=== PATIENT | female | born 1940 | race Caucasian/White ===

== ENCOUNTER 2018-03-11 10:57 | Inpatient (IN) ==
[2018-03-11] MEDS ORDERED: Naloxone 0.4 MG/ML INJ IVP PRN (15:00)
--- NOTE | 2018-03-11 15:26 | Internal Med History&Physical ---
Date of Encounter: 03/11/18 Time of Encounter: 15:18 Internal Medicine - H&P: HPI Chief complaint: abdominal pain Admitted From: Hospital to Hospital Transfer Plans for Post Hospital Care: Home History of present illness: Ms. Perez is a 77 year old female with history of breast cancer status post lumpectomy and radiation, hypertension and hypothyroidism who presented to the [facility] emergency department on 03/09 with complaint of vomiting and diarrhea. As per chart review and [facility] documentation " She reports 2-3 episodes of vomiting and diarrhea without visible blood in either. There was no significant abdominal pain. She was brought to emergency room and evaluated and found to have slightly elevated LFTs. Abdominal/pelvic CT showed Cholelithiasis without evidence of cholecystitis was seen. She was admitted to [facility] for ongoing care needs." His UA was found to be positive at that time and she was given ceftriaxone. On 03/11 she complained of right upper quadrant abdominal pain with T's were repeated and it showed an increased level of alkaline phosphatase in addition to transaminitis so she was transferred to [facility] for further care. Currently she denies abdominal pain but does report a "funny feeling" in the RUQ. she Reports that her nausea and vomiting have resolved as of this morning. Denies diarrhea. denies hematemesis, hematochezia, melena. does report RUQ pain previously after eating fatty foods. her symtoms began on 03/08 after she was visiting her friend and they " pigged out" on "junk food". denies sick contacts, her family members and other friends are not experiencing similar symptoms. Past Med Surg Social Fam HX - Past Medical History Medical history: cancer, hypertension, kidney stones, thyroid disease Additional medical history: breast cancer-lumpectomy (20 radiation treatments) Psychiatric history: no psych history - Past Surgical History Surgical History: breast surgery Additional surgical history: BREAST CANCER - Social History Smoking Status: Never smoker Smokeless Tobacco Status: No Alcohol use: none Drug use: none - Family History Mother Living Status: Hx Family Endocrine Disorder: Yes (diabetes) Father Living Status: Hx Family Cancer: Yes (lung cancer) Internal Medicine - H&P: Meds Calcium Carbonate/Vitamin D3 [Calcium 250+D Tablet] 1 each PO BID 03/19/15 [ History] Levothyroxine [Synthroid] 50 mcg PO DAILY 03/19/15 [History] Lisinopril [Zestril] 40 mg PO DAILY 03/19/15 [History] Flaxseed Oil 1 cap PO BID #60 capsule 01/29/16 [Rx] Anastrozole [Arimidex] 1 mg PO DAILY #90 tablet 01/21/17 [Rx] Cyanocobalamin (Vitamin B-12) [Vitamin B12] 1 tab PO DAILY #30 tablet 01/06/18 [ Rx] 3 Allergy/AdvReac Type Severity Reaction Status Date / Time allopurinol Allergy Rash Verified 03/09/18 13:07 clindamycin Allergy Rash Verified 03/09/18 13:07 All Systems PM: review of systems was performed and is negative for pertinent findings except as documented above in the HPI. - Constitutional Vitals: Temp Pulse Resp BP Pulse Ox 98.2 F 57 16 183/85 95 03/11/18 13:33 03/11/18 13:33 03/11/18 13:33 03/11/18 13:33 03/11/18 13:33 Exam: General: Patient is alert, oriented, no acute distress, morbidly obese Head: atraumatic, normocephalic, Eye: normal appearance, PERRL, no scleral icterus, no conjunctival injection ENT: mucous membranes moist, normal external ear exam Neck: normal inspection, trachea midline, full ROM, no carotid bruits Chest: normal inspection, symmetric chest rise Respiratory: Good respiratory effort. Bilateral breath sounds are clear without wheezing, crackles, or rhonchi. Cardiovascular: Regular rate and rhythm. s1 and s2 No clicks, rubs, gallops, or murmors. Abdomen: Bowel sounds present normoactive x-4 quadrants. Abdomen is soft, nondistended. no Epigastric tenderness. No guarding or rebound. No organomegaly noted, obese, murphysign negative musculoskeletal: Spontaneously moving all extremities. no edema, no calf tenderness Skin: warm, dry, intact. Neuro: Alert and oriented x4. Sensation light touch intact. Cranial nerves 2- 12 is intact. Not aphasic, rapid hand movements intact, [id number] intact, Psych: Patient's affect is normal - Assessment and plan (1) RUQ abdominal pain Current Visit: Yes Status: Acute Assessment and plan: patient with cholelithiasis and now new onset of RUQ abdominal pain ALP adn bilirubin have trended up GI consulted for possible ERCP surgery was consulted for cholecystectomy she has prior episodes of bilary colic on zosyn NPO continue IVF zofran PRN for nausea (2) Cholelithiasis Current Visit: No Status: Acute Assessment and plan: CT scan performed on 03/09 at [facility] shows cholelithiasis without evidence of obstruction Does report history of biliary colic Breast the management as per above. Qualifiers: Cholelithiasis location: gallbladder Cholecystitis acuity: acute and chronic Qualified Code(s): K80.12 - Calculus of gallbladder with acute and chronic cholecystitis without obstruction (3) UTI (urinary tract infection) Current Visit: Yes Status: Acute Assessment and plan: urine cultures growing gram negative rods on Zosyn will follow cx and descalate CT A/P performed on 03/09- There is no evidence for urinary tract stone or urinary tract obstruction to either kidney. Redemonstration of low-attenuation foci to both kidneys felt to reflect benign renal cysts and without necessity for continued follow-up. Qualifiers: Urinary tract infection type: acute cystitis Hematuria presence: without hematuria Qualified Code(s): N30.00 - Acute cystitis without hematuria (4) CKD (chronic kidney disease) stage 3, GFR 30-59 ml/min Current Visit: No Status: Acute Assessment and plan: creatinine at baseline will continue to monitor renal functions (5) Hyperlipidemia Current Visit: No Status: Acute Assessment and plan: Will hold off statins as patient has transaminitis Was counseled on nutrition Qualifiers: Hyperlipidemia type: mixed hyperlipidemia Qualified Code(s): E78.2 - Mixed hyperlipidemia (6) Anemia Current Visit: No Status: Chronic Assessment and plan: Has history of chronic anemia baseline hemoglobin around 10 We will continue to monitor H&H Transfuse below 7 Qualifiers: Anemia type: unspecified type Qualified Code(s): D64.9 - Anemia, unspecified (7) Hypertension Current Visit: No Status: Chronic Assessment and plan: Continue lisinopril Qualifiers: Hypertension type: essential hypertension Qualified Code(s): I10 - Essential (primary) hypertension (8) Hypothyroidism Current Visit: No Status: Chronic Assessment and plan: Continue Synthroid Qualifiers: Hypothyroidism type: unspecified Qualified Code(s): E03.9 - Hypothyroidism , unspecified (9) Invasive ductal carcinoma of right breast Current Visit: No Status: Resolved Assessment and plan: Status post lumpectomy as follows with Dr. Corea at [facility] Continue anastrozole (10) DVT prophylaxis Current Visit: Yes Status: Acute Assessment and plan: heparin SC (11) Morbidly obese Current Visit: Yes Status: Acute Assessment and plan: was counseled on nutrition - Time Spent With Patient Total time spent is greater than 50% in coordination of care (as documented) at patient's floor/unit and/or counseling patient:
--- NOTE | 2018-03-11 15:51 | General Surgery Consult Note ---
<Sarah Villela - Last Filed: 03/11/18 16:06> Date of Encounter: 03/11/18 Time of Encounter: 15:45 Assessment and Plan (1) Transaminitis Current Visit: Yes Status: Acute see above (2) Cholelithiasis without cholecystitis Current Visit: Yes Status: Acute Noted G.I. consult. Recommend likely ERCP prior to surgical intervention for cholecystectomy. WBC is normal. No evidence of acute cholecystitis. Npo IVF IV ATBX Serial abd exams repeat am labs will continue to follow History of Present Illness Consult date: 03/11/18 (Dr. Loc Hernandez) Reason for consult: gallstones Requesting physician: Kendell Ramirez History of present illness: Ms. Perez is a 77-year-old female with a significant past medical history of breast cancer. Additional past medical, social, and surgical history to reviewed per the electronic medical record. She was transferred from [facility] on 03/11/2018 for choledocholithiasis. Patient reports approximately a 1 year history of colicky nausea, vomiting, and diarrhea which would be exacerbated by food. She is unable to state what food particularly caused the discomfort but states that always occurred after she ate. Approximately one to 3 days ago she began having some right upper quadrant pain, nausea, uncontrollable vomiting, and some diarrhea. She went to the emergency department as such (she was also seen on March 09, 2018 for the same complaints at which time she had a CT scan which noted cholelithiasis without obstruction). She reports having dark-colored urine. She denies fever, chills, chest pain, generalized weakness, black, bloody, or tarry stool. She reports feeling occasional shortness of breath which is not outside her norm. Her clinical course thus far has included laboratory studies which noted elevated direct and total bilirubin, elevated LFTs, and a CT of the abdomen and pelvis without contrast which notes cholelithiasis. G.I. has been consult it for recommendations regarding a possible ERCP. Surgery has been consult did for recommendations regarding cholecystectomy. Past Med Surg Social Fam HX - Past Medical History Source: patient, old records reviewed Medical history: cancer, hypertension, kidney stones, thyroid disease Additional medical history: breast cancer-lumpectomy (20 radiation treatments) Psychiatric history: no psych history - Past Surgical History Surgical History: breast surgery Additional surgical history: BREAST CANCER - Social History Smoking Status: Never smoker Smokeless Tobacco Status: No Alcohol use: none Drug use: none - Family History Mother Living Status: Hx Family Endocrine Disorder: Yes (diabetes) Father Living Status: Hx Family Cancer: Yes (lung cancer) Medications and Allergies Calcium Carbonate/Vitamin D3 [Calcium 250+D Tablet] 1 each PO BID 03/19/15 [ History] Levothyroxine [Synthroid] 50 mcg PO DAILY 03/19/15 [History] Anastrozole [Arimidex] 1 mg PO DAILY #90 tablet 01/21/17 [Rx] Cyanocobalamin (Vitamin B-12) [Vitamin B12] 1 tab PO DAILY #30 tablet 01/06/18 [ Rx] Flaxseed Oil [[place]-3 Flaxseed Oil] 1,000 mg PO DAILY 03/11/18 [History] Lisinopril [Zestril] 40 mg PO DAILY 03/11/18 [History] 3 Allergy/AdvReac Type Severity Reaction Status Date / Time allopurinol Allergy Rash Verified 03/09/18 13:07 clindamycin Allergy Rash Verified 03/09/18 13:07 Review of Systems All systems PM: reviewed and no additional remarkable complaints except as stated All systems PM: The remainder of the systems were reviewed and are negative General Surgery Exam Initial Vital Signs Temp Pulse Resp BP Pulse Ox 98.2 F 57 16 183/85 95 03/11/18 13:33 03/11/18 13:33 03/11/18 13:33 03/11/18 13:33 03/11/18 13:33 VITAL SIGNS: Reviewed. See [facility] GENERAL: In no apparent distress. HEENT: Normocephalic, atraumatic, pupils are equal and reactive, extraocular motions intact, scleral icteric; oropharynx is pink and moist, there is no neck adenopathy or JVD noted. CHEST/RESPIRATORY: The thorax is free from signs of trauma. Lung sounds: clear to auscultation, normal respiratory effort CARDIAC: Regular rate and rhythm. Normal S1 and S2, without murmurs, gallops, or rubs. VASCULAR: No Edema. 2+ peripheral pulses. ABDOMEN: soft, hypoactive bowel sounds, positive Cabrera sign MUSCULOSKELETAL: Good range of motion of all major joints. Extremities without clubbing, cyanosis or edema. NEUROLOGIC EXAM: Alert and oriented x 3. Speech normal. Follows commands. PSYCHIATRIC: Mood normal. SKIN: No rash or lesions. Jaundice noted Exam Initial Vital Signs Temp Pulse Resp BP Pulse Ox 98.2 F 57 16 183/85 95 03/11/18 13:33 03/11/18 13:33 03/11/18 13:33 03/11/18 13:33 03/11/18 13:33 Results - Labs All other labs normal. - Imaging CT scan - abdomen: report reviewed, image reviewed CT scan - pelvis: report reviewed, image reviewed Consult Discharge Plan - Plan Instructions: Gallstones (DC), Low Fat Diet (DC) Referrals: Loc Hernandez MD [Partnered Physician] - 03/17/18 8:15 am Aguila Rocha MD [Primary Care Provider] - 03/17/18 11:30 am <Loc Hernandez - Last Filed: 03/12/18 14:58> Date of Encounter: 03/11/18 Assessment and Plan (1) Transaminitis Current Visit: Yes Status: Acute (2) Cholelithiasis without cholecystitis Current Visit: Yes Status: Acute Review of Systems All systems PM: The remainder of the systems were reviewed and are negative General Surgery Exam Initial Vital Signs Temp Pulse Resp BP Pulse Ox 98.2 F 57 16 183/85 95 03/11/18 13:33 03/11/18 13:33 03/11/18 13:33 03/11/18 13:33 03/11/18 13:33 Exam Initial Vital Signs Temp Pulse Resp BP Pulse Ox 98.2 F 57 16 183/85 95 03/11/18 13:33 03/11/18 13:33 03/11/18 13:33 03/11/18 13:33 03/11/18 13:33 Results - Labs 03/12/18 05:31 03/12/18 05:31 Abnormal lab results RBC 3.38 M/mcL (3.82-4.97) L 03/12/18 05:31 Hgb 10.4 g/dL (11.5-15.4) L 03/12/18 05:31 Hct 32.2 % (35.3-44.9) L 03/12/18 05:31 Creatinine 1.44 mg/dL (0.60-1.20) H 03/12/18 05:31 Est GFR ( Amer) 43 (> 60) L 03/12/18 05:31 Est GFR (Non-Af Amer) 35 (> 60) L 03/12/18 05:31 Glucose 126 mg/dL (70-105) H 03/12/18 05:31 POC Glucose 123 mg/dL (70-99) H 03/12/18 05:49 Total Bilirubin 1.4 mg/dL (0.3-1.0) H 03/12/18 05:31 Direct Bilirubin 0.8 mg/dL (0.0-0.2) H 03/12/18 05:31 AST 123 Units/L (13-39) H 03/12/18 05:31 ALT 314 Units/L (7-52) H 03/12/18 05:31 Alkaline Phosphatase 173 Units/L (34-104) H 03/12/18 05:31 Diabetes panel 03/12/18 Range/Units 05:31 Sodium 140 (136-145) mEq/L Potassium 3.5 (3.5-5.1) mEq/L Chloride 105 (98-107) mEq/L Carbon Dioxide 26 (23-29) mEq/L BUN 16 (8-23) mg/dL Creatinine 1.44 H (0.60-1.20) mg/dL Glucose 126 H (70-105) mg/dL Calcium 9.5 (8.6-10.3) mg/dL AST 123 H (13-39) Units/L ALT 314 H (7-52) Units/L Alkaline Phosphatase 173 H (34-104) Units/L Albumin 3.6 (3.5-5.7) g/dL Calcium panel 03/12/18 Range/Units 05:31 Calcium 9.5 (8.6-10.3) mg/dL Phosphorus 3.5 (2.7-4.5) mg/dL Albumin 3.6 (3.5-5.7) g/dL Pituitary panel 03/12/18 Range/Units 05:31 Sodium 140 (136-145) mEq/L Potassium 3.5 (3.5-5.1) mEq/L Chloride 105 (98-107) mEq/L Carbon Dioxide 26 (23-29) mEq/L BUN 16 (8-23) mg/dL Creatinine 1.44 H (0.60-1.20) mg/dL Glucose 126 H (70-105) mg/dL Calcium 9.5 (8.6-10.3) mg/dL Adrenal panel 03/12/18 Range/Units 05:31 Sodium 140 (136-145) mEq/L Potassium 3.5 (3.5-5.1) mEq/L Chloride 105 (98-107) mEq/L Carbon Dioxide 26 (23-29) mEq/L BUN 16 (8-23) mg/dL Creatinine 1.44 H (0.60-1.20) mg/dL Glucose 126 H (70-105) mg/dL Calcium 9.5 (8.6-10.3) mg/dL Total Bilirubin 1.4 H (0.3-1.0) mg/dL AST 123 H (13-39) Units/L ALT 314 H (7-52) Units/L Alkaline Phosphatase 173 H (34-104) Units/L Albumin 3.6 (3.5-5.7) g/dL All other labs normal. - Attending Attestation I have personally performed a face to face evaluation on this patient. I have reviewed and agree with the care plan. History and Exam by me shows: Review the assessment and evaluation agree with the plan. Patient has a history of colicky abdominal pain. Noted nausea. No change in color or urine or stool. Laboratory studies show elevated bilirubin. She has some tenderness to palpation but her symptoms have improved. She is currently being evaluated by gastroenterology who will consider performing an ERCP. Once performed and she starts to improve then we will follow-up as an outpatient and consider a laparoscopic cholecystectomy as outpatient. Discussed with the patient and she agrees with the above plan.
[2018-03-11] MEDS: amLODIPine 5 MG TABLET PO SCH (15:55)
[2018-03-11] MEDS: 0.9 % Sodium Chloride 1,000 ML IVC SCH (15:56)
[2018-03-11] MEDS: Piperacillin/Tazobactam 3.375 GM in 0.9 % Sodium Chloride Mini Bag 100 ML IVPB SCH (16:03)
[2018-03-11] MEDS ORDERED: Furosemide 20 MG/2 ML VIAL IVP ONE (17:32)
[2018-03-11] MEDS: FLAXSEED OIL PO SCH (21:46)
[2018-03-11] MEDS: CALCIUM PO SCH (21:46)
[2018-03-11] MEDS: [UNRECOGNIZED DRUG - OTHER] PO SCH (21:46)
[2018-03-11] MEDS: *HR* Heparin 5,000 UNIT/ML VIAL SQ SCH (21:57)
[2018-03-12] MEDS: Piperacillin/Tazobactam 3.375 GM in 0.9 % Sodium Chloride Mini Bag 100 ML IVPB SCH ×4 (01:17→23:19)
[2018-03-12] MEDS: *HR* Heparin 5,000 UNIT/ML VIAL SQ SCH ×3 (05:39→21:54)
[2018-03-12 06:00] LABS: Prothrombin Time 11.7 Seconds (9.4-12.1)
[2018-03-12 06:01] LABS: Basophils % 0.8 %; Eosinophils # 0.2 K/mcL (0.0-0.6); Eosinophils % 4.3 %; Hematocrit 32.2 % (35.3-44.9); Hemoglobin 10.4 g/dL (11.5-15.4); Immature Granulocytes % 0.4 % (0-4); Lymphocytes # 1.1 K/mcL (0.6-4.6); Lymphocytes % 23.1 %; Mean Corpuscular HGB Conc 32.3 g/dL (31.6-35.5); Mean Corpuscular Hemoglobin 30.8 pg (28.0-33.3); Mean Corpuscular Volume 95.3 fL (83.0-100.0); Mean Platelet Volume 9.9 fL (9.4-12.4); Monocytes # 0.4 K/mcL (0.0-1.3); Monocytes % 8.5 %; Neutrophils # 3.1 K/mcL (1.6-8.9); Platelet Count 180 K/mcL (140-400); Red Blood Count 3.38 M/mcL (3.82-4.97); Segmented Neutrophils % 62.9 %
[2018-03-12 06:03] LABS: Activated Partial Thrombo Time 33.2 Seconds (26.0-36.0)
[2018-03-12 06:06] LABS: Albumin 3.6 g/dL (3.5-5.7); Albumin/Globulin Ratio 1.2 (1.1-2.2); Bilirubin,Total 1.4 mg/dL (0.3-1.0); Calcium 9.5 mg/dL (8.6-10.3); Magnesium 1.6 mg/dL (1.6-2.6); Phosphorous 3.5 mg/dL (2.7-4.5); Potassium 3.5 mEq/L (3.5-5.1); Total Protein 6.6 g/dL (6.4-8.9)
[2018-03-12] MEDS: Lisinopril 20 MG TABLET PO SCH (09:17)
[2018-03-12] MEDS: Anastrozole 1 MG TABLET PO SCH (09:17)
[2018-03-12] MEDS: amLODIPine 5 MG TABLET PO SCH (09:17)
[2018-03-12] MEDS: Cyanocobalamin (B-12) 1,000 MCG TABLET PO SCH (09:17)
[2018-03-12] MEDS: CALCIUM PO SCH ×2 (09:36→21:50)
[2018-03-12] MEDS: [UNRECOGNIZED DRUG - OTHER] PO SCH ×2 (09:36→21:50)
[2018-03-12] MEDS: FLAXSEED OIL PO SCH ×2 (09:37→21:50)
--- NOTE | 2018-03-12 10:02 | Gastroenterology Consult Note ---
Date of Encounter: 03/12/18 Time of Encounter: 08:45 - Assessment and plan (1) Transaminitis Current Visit: Yes Status: Acute Assessment and plan: MRCP did not show choledocholithiasis or biliary dilation, lFTs are trending down, discussed with Dr Bean he recommends cholecystectomy with intraoperative cholangiogram if abnormal will schedule for ERCP. Continue IV hydration, monitor LFTs. (2) Cholelithiasis without cholecystitis Current Visit: Yes Status: Acute Assessment and plan: Pt followed by surgery, discussed with Sarah Villela CNP this morning - Time Spent With Patient Total time spent is greater than 50% in coordination of care (as documented) at patient's floor/unit and/or counseling patient: GI History of Present Illness - Data of Consult Patient: new to practice Consult date: 03/12/18 Requesting Physician: Kendell Ramirez MD - Consult Narrative Reason for consult: transaminitis History of present illness: Ms. Perez is a 77 year old female with history of breast cancer status post lumpectomy and radiation, hypertension and hypothyroidism. She presented to the [facility] emergency department on 03/09 with complaint of vomiting and diarrhea. She reported 2-3 episodes of vomiting and diarrhea without visible blood in either after eating "junk food". There was no significant abdominal pain. She was brought to emergency room and evaluated and found to have slightly elevated LFTs. Abdominal/pelvic CT showed Cholelithiasis without evidence of cholecystitis was seen. She was admitted to [facility] floor for ongoing care needs. Her UA was found to be positive and she was started on ceftriaxone. On 03/11 she complained of right upper quadrant abdominal pain, LFTs were repeated and it showed an increased level of alkaline phosphatase in addition to transaminitis so she was transferred to [facility] for further care. GI was consulted for possible ERCP. MRCP showed Cholelithiasis. No evidence of choledocholithiasis. No biliary ductal dilation. Bilirubin was elevated at 3.1 yesterday has decreased to 1.4 today. AST and ALT are also trending down. Colon: 2010 per pt was normal EGD denies NSAIDS: denies anticoagulants: heparin on hold Past Med Surg Social Fam HX - Past Medical History Medical history: cancer, hypertension, kidney stones, thyroid disease Additional medical history: breast cancer-lumpectomy (20 radiation treatments) Psychiatric history: no psych history - Past Surgical History Surgical History: breast surgery Additional surgical history: BREAST CANCER - Social History Smoking Status: Never smoker Smokeless Tobacco Status: No Alcohol use: none Drug use: none - Family History Mother Living Status: Hx Family Endocrine Disorder: Yes (diabetes) Father Living Status: Hx Family Cancer: Yes (lung cancer) Review of Systems: GI: as per [facility] GENERAL: denies fever, or chills EYES: denies yellow discoloration ENT: denies pain with swallowing or difficulty swallowing CARDIO: denies chest pain, palpitations RESP: No Shortness of breath with exertion : denies change in color of urine NEURO: weakness HEME: Denies any bruising MS: denies joint pain, joint swelling or back pain. DERM: denies rash or itching PSYCH: Denies history of anxiety or depression - Constitutional Vitals: Temp Pulse Resp BP Pulse Ox 98.1 F 61 16 199/57 94 03/12/18 07:43 03/12/18 07:43 03/12/18 07:43 03/12/18 07:43 03/12/18 08:13 Exam: CONSTITUTIONAL:~alert, no acute distress.~HEAD:~normocephalic.~EYES:~no jaundice.~NECK:~no obvious swelling.~HEART:~regular rate and rhythm, no murmurs. ~LUNGS:~bilateral good air entry.~ABDOMEN:~non distended, soft, tender epigastric area, and under both breasts, no masses pulpable, no organomegaly, obese.~RECTAL EXAM:~Deferred.~EXTREMITIES:~no clubbing, cyanosis or edema.~SKIN: ~pallor noted, no stigmata of chronic liver disease.~NEUROLOGIC:~no obvious focal defect.~~~~ Results - Labs CBC & Chem 7: 03/12/18 05:31 03/12/18 05:31 Labs: Last Result Calcium 9.5 mg/dL (8.6-10.3) 03/12/18 05:31 Entire Visit Hgb 10.4 g/dL (11.5-15.4) L 03/12/18 05:31 Hct 32.2 % (35.3-44.9) L 03/12/18 05:31 PT 11.7 Seconds (9.4-12.1) 03/12/18 05:31 Total Bilirubin 1.4 mg/dL (0.3-1.0) H 03/12/18 05:31 AST 123 Units/L (13-39) H 03/12/18 05:31 ALT 314 Units/L (7-52) H 03/12/18 05:31 - ABG ABG results: PT/INR, D-dimer PT 11.7 Seconds (9.4-12.1) 03/12/18 05:31 - Impressions Impressions Abdomen MRI 03/11/18 21:52 IMPRESSION: 1. No evidence of choledocholithiasis. No biliary ductal dilation. 2. Cholelithiasis. D/ / Danish Faith MD / Danish Faith MD Interpreting Provider: Danish Faith MD Consult Discharge Plan - Plan Referrals: Aguila Rocha MD [Primary Care Provider] -
--- NOTE | 2018-03-12 10:13 | General Surgery Progress Note ---
<Sarah Villela - Last Filed: 03/12/18 13:20> Date of Encounter: 03/12/18 - Assessment and Plan (1) Cholelithiasis without cholecystitis Current Visit: Yes Status: Acute OK to d/c patient from a surgical perspective. Follow-up appointment made (see d /c plan). Low at diet at d/c. Return for worsening symptoms. (2) Transaminitis Current Visit: Yes Status: Acute resolving Objective Vital Signs - Last 8 Hours Temp Pulse Resp BP Pulse Ox 03/12/18 11:59 98.0 F 81 16 178/74 94 03/12/18 08:13 94 03/12/18 07:43 98.1 F 61 16 199/57 94 Intake and Output 03/11/18 03/12/18 03/12/18 23:59 07:59 15:59 Intake Total 100 / 100 0 / 0 Output Total 1300 / 1300 Balance -1200 / -1200 0 / 0 Intake: IV Fluids 100 / 100 0 / 0 Zosyn 3.375 GM In 0.9 % Sodium 100 / 100 0 / 0 Chloride (Mini-Bag +) 100 ML @ 25 mls/hr IVPB Q8HR [facility] Rx#: [id number] Output: Urine 1300 / 1300 Other: Meal NPO Weight 109.7 kg Blood Glucose* 115 123 124 Patient Weight 03/12/18 23:59 Weight 109.7 kg - Labs 03/12/18 05:31 03/12/18 05:31 Diabetes panel 03/12/18 Range/Units 05:31 Sodium 140 (136-145) mEq/L Potassium 3.5 (3.5-5.1) mEq/L Chloride 105 (98-107) mEq/L Carbon Dioxide 26 (23-29) mEq/L BUN 16 (8-23) mg/dL Creatinine 1.44 H (0.60-1.20) mg/dL Glucose 126 H (70-105) mg/dL Calcium 9.5 (8.6-10.3) mg/dL AST 123 H (13-39) Units/L ALT 314 H (7-52) Units/L Alkaline Phosphatase 173 H (34-104) Units/L Albumin 3.6 (3.5-5.7) g/dL Calcium panel 03/12/18 Range/Units 05:31 Calcium 9.5 (8.6-10.3) mg/dL Phosphorus 3.5 (2.7-4.5) mg/dL Albumin 3.6 (3.5-5.7) g/dL Pituitary panel 03/12/18 Range/Units 05:31 Sodium 140 (136-145) mEq/L Potassium 3.5 (3.5-5.1) mEq/L Chloride 105 (98-107) mEq/L Carbon Dioxide 26 (23-29) mEq/L BUN 16 (8-23) mg/dL Creatinine 1.44 H (0.60-1.20) mg/dL Glucose 126 H (70-105) mg/dL Calcium 9.5 (8.6-10.3) mg/dL Adrenal panel 03/12/18 Range/Units 05:31 Sodium 140 (136-145) mEq/L Potassium 3.5 (3.5-5.1) mEq/L Chloride 105 (98-107) mEq/L Carbon Dioxide 26 (23-29) mEq/L BUN 16 (8-23) mg/dL Creatinine 1.44 H (0.60-1.20) mg/dL Glucose 126 H (70-105) mg/dL Calcium 9.5 (8.6-10.3) mg/dL Total Bilirubin 1.4 H (0.3-1.0) mg/dL AST 123 H (13-39) Units/L ALT 314 H (7-52) Units/L Alkaline Phosphatase 173 H (34-104) Units/L Albumin 3.6 (3.5-5.7) g/dL Consult Discharge Plan - Plan Instructions: Gallstones (DC), Low Fat Diet (DC) Referrals: Aguila Rocha MD [Primary Care Provider] - 03/17/18 11:30 am Loc Hernandez MD [Partnered Physician] - 03/17/18 8:15 am <Hortencia Torres - Last Filed: 03/12/18 16:17> Date of Encounter: 03/12/18 Time of Encounter: 10:11 - Assessment and Plan (1) Cholelithiasis without cholecystitis Current Visit: Yes Status: Acute Afebrile with normal WBC. MRI shows cholethithiasis with no evidence of choledocholothiasis and no bilary ductal dilation. Given complete resolution of symptoms there is no indication for emergent surgical intervention warranted at this time. - LFTs continue to trend down - agree with IVF - continue supportive care and pain management We will obtain as fraction billirubin but if normal she may follow up in office in one week's time to discuss out patient lap niki. We would advise her to follow a low fat diet. (2) Transaminitis Current Visit: Yes Status: Acute Subjective Patient reports: feels better, pain is less, flatus, afebrile Narrative: 77 y/o female with history of periodic abdominal pain and nausea trigger by eating for the past 2 years. She reports resolved nausea, diarrhea and pain - with last emesis on Thursday. She was concerned that family said she was turning yellow Objective Vital Signs - Last 8 Hours Temp Pulse Resp BP Pulse Ox 03/12/18 08:13 94 03/12/18 07:43 98.1 F 61 16 199/57 94 03/12/18 03:52 98 F 58 14 148/71 95 Intake and Output 03/11/18 03/12/18 03/12/18 23:59 07:59 15:59 Intake Total 100 / 100 0 / 0 Output Total 1300 / 1300 Balance -1200 / -1200 0 / 0 Intake: IV Fluids 100 / 100 0 / 0 Zosyn 3.375 GM In 0.9 % Sodium 100 / 100 0 / 0 Chloride (Mini-Bag +) 100 ML @ 25 mls/hr IVPB Q8HR [facility] Rx#: [id number] Output: Urine 1300 / 1300 Other: Weight 109.7 kg Blood Glucose* 115 123 Patient Weight 03/12/18 23:59 Weight 109.7 kg - General physical appearance well developed, no distress, obese - Eyes PERRL, normal ocular movement (no icteric) - ENT normal pinna, normal nares, dry mucosa - Respiratory normal expansion, normal respiratory effort, clear to auscultation - Cardiovascular Cardiovascular exam: Present: RRR, no murmurs/rubs/gallops - Abdomen Abdomen: Present: bowel sounds present, soft. Absent: distended, guarding, rebound Abdominal Tenderness: RUQ (mild) Hernia: none - Integumentary no rash, no growths, no abnormal pigmentation, other (no jaundice) - Neurologic CN 2-12 grossly intact, normal coordination - Musculoskeletal normal gait, normal posture - Psychiatric oriented to time, oriented to person, oriented to place, speech is normal, memory intact - Labs 03/12/18 05:31 03/12/18 05:31 Diabetes panel 03/12/18 Range/Units 05:31 Sodium 140 (136-145) mEq/L Potassium 3.5 (3.5-5.1) mEq/L Chloride 105 (98-107) mEq/L Carbon Dioxide 26 (23-29) mEq/L BUN 16 (8-23) mg/dL Creatinine 1.44 H (0.60-1.20) mg/dL Glucose 126 H (70-105) mg/dL Calcium 9.5 (8.6-10.3) mg/dL AST 123 H (13-39) Units/L ALT 314 H (7-52) Units/L Alkaline Phosphatase 173 H (34-104) Units/L Albumin 3.6 (3.5-5.7) g/dL Calcium panel 03/12/18 Range/Units 05:31 Calcium 9.5 (8.6-10.3) mg/dL Phosphorus 3.5 (2.7-4.5) mg/dL Albumin 3.6 (3.5-5.7) g/dL Pituitary panel 03/12/18 Range/Units 05:31 Sodium 140 (136-145) mEq/L Potassium 3.5 (3.5-5.1) mEq/L Chloride 105 (98-107) mEq/L Carbon Dioxide 26 (23-29) mEq/L BUN 16 (8-23) mg/dL Creatinine 1.44 H (0.60-1.20) mg/dL Glucose 126 H (70-105) mg/dL Calcium 9.5 (8.6-10.3) mg/dL Adrenal panel 03/12/18 Range/Units 05:31 Sodium 140 (136-145) mEq/L Potassium 3.5 (3.5-5.1) mEq/L Chloride 105 (98-107) mEq/L Carbon Dioxide 26 (23-29) mEq/L BUN 16 (8-23) mg/dL Creatinine 1.44 H (0.60-1.20) mg/dL Glucose 126 H (70-105) mg/dL Calcium 9.5 (8.6-10.3) mg/dL Total Bilirubin 1.4 H (0.3-1.0) mg/dL AST 123 H (13-39) Units/L ALT 314 H (7-52) Units/L Alkaline Phosphatase 173 H (34-104) Units/L Albumin 3.6 (3.5-5.7) g/dL <Loc Hernandez Jo - Last Filed: 03/12/18 17:35> Date of Encounter: 03/12/18 Time of Encounter: 17:34 - Assessment and Plan (1) Transaminitis Current Visit: Yes Status: Acute (2) Cholelithiasis without cholecystitis Current Visit: Yes Status: Acute Objective Vital Signs - Last 8 Hours Temp Pulse Resp BP Pulse Ox 03/12/18 16:10 98.4 F 71 16 169/71 92 03/12/18 11:59 98.0 F 81 16 178/74 94 Intake and Output 03/12/18 03/12/18 03/12/18 07:59 15:59 23:59 Intake Total 0 / 0 100 / 100 Balance 0 / 0 100 / 100 Intake: IV Fluids 0 / 0 100 / 100 Zosyn 3.375 GM In 0.9 % Sodium 0 / 0 100 / 100 Chloride (Mini-Bag +) 100 ML @ 25 mls/hr IVPB Q8HR [facility] Rx#: [id number] Other: Meal NPO Weight 109.7 kg Blood Glucose* 123 124 Patient Weight 03/12/18 23:59 Weight 109.7 kg - Labs 03/12/18 05:31 03/12/18 05:31 Diabetes panel 03/12/18 Range/Units 05:31 Sodium 140 (136-145) mEq/L Potassium 3.5 (3.5-5.1) mEq/L Chloride 105 (98-107) mEq/L Carbon Dioxide 26 (23-29) mEq/L BUN 16 (8-23) mg/dL Creatinine 1.44 H (0.60-1.20) mg/dL Glucose 126 H (70-105) mg/dL Calcium 9.5 (8.6-10.3) mg/dL AST 123 H (13-39) Units/L ALT 314 H (7-52) Units/L Alkaline Phosphatase 173 H (34-104) Units/L Albumin 3.6 (3.5-5.7) g/dL Calcium panel 03/12/18 Range/Units 05:31 Calcium 9.5 (8.6-10.3) mg/dL Phosphorus 3.5 (2.7-4.5) mg/dL Albumin 3.6 (3.5-5.7) g/dL Pituitary panel 03/12/18 Range/Units 05:31 Sodium 140 (136-145) mEq/L Potassium 3.5 (3.5-5.1) mEq/L Chloride 105 (98-107) mEq/L Carbon Dioxide 26 (23-29) mEq/L BUN 16 (8-23) mg/dL Creatinine 1.44 H (0.60-1.20) mg/dL Glucose 126 H (70-105) mg/dL Calcium 9.5 (8.6-10.3) mg/dL Adrenal panel 03/12/18 Range/Units 05:31 Sodium 140 (136-145) mEq/L Potassium 3.5 (3.5-5.1) mEq/L Chloride 105 (98-107) mEq/L Carbon Dioxide 26 (23-29) mEq/L BUN 16 (8-23) mg/dL Creatinine 1.44 H (0.60-1.20) mg/dL Glucose 126 H (70-105) mg/dL Calcium 9.5 (8.6-10.3) mg/dL Total Bilirubin 1.4 H (0.3-1.0) mg/dL AST 123 H (13-39) Units/L ALT 314 H (7-52) Units/L Alkaline Phosphatase 173 H (34-104) Units/L Albumin 3.6 (3.5-5.7) g/dL - Attending Attestation I examined this patient and my medical decision-making was reviewed with the Resident Physician. I agree with the documented findings, disposition and treatment plan as described except to the extent set forth below. Review the above assessment and evaluation; patient bilirubin is decreasing. From a surgical standpoint if she tolerates by mouth diet would be okay with her going home and we will make sure she has a follow-up appointment to see us in the office next week and perform a laparoscopic cholecystectomy with intraoperative cholangiogram as an outpatient.
--- NOTE | 2018-03-12 10:24 | Internal Med Progress Note ---
Hospitalist Progress Note - Encounter Date of Encounter: 03/12/18 Time of Encounter: 08:00 - Subjective Interval History: Patient was seen and examined at bedside, reports no overnight events, tolerated liquid diet overnight however is nothing by mouth for ERCP today. Denies pain, nausea, vomiting, diarrhea, skin itching. She denies chest pain or shortness of breath. - Exam Vitals: Temp Pulse Resp BP Pulse Ox 98.1 F 61 16 199/57 94 03/12/18 07:43 03/12/18 07:43 03/12/18 07:43 03/12/18 07:43 03/12/18 08:13 Exam: General: Patient is alert, oriented, no acute distress, morbidly obese Head: atraumatic, normocephalic, Eye: normal appearance, PERRL, no scleral icterus, no conjunctival injection ENT: mucous membranes moist, normal external ear exam Neck: normal inspection, trachea midline, full ROM, no carotid bruits Chest: normal inspection, symmetric chest rise Respiratory: Good respiratory effort. Bilateral breath sounds are clear without wheezing, crackles, or rhonchi. Cardiovascular: Regular rate and rhythm. s1 and s2 No clicks, rubs, gallops, or murmors. Abdomen: Bowel sounds present normoactive x-4 quadrants. Abdomen is soft, nondistended. no Epigastric tenderness. No guarding or rebound. No organomegaly noted, obese, murphysign negative musculoskeletal: Spontaneously moving all extremities. no edema, no calf tenderness Skin: warm, dry, intact. jaundiced Neuro: Alert and oriented x4. Sensation light touch intact. Cranial nerves 2- 12 is intact. Not aphasic, rapid hand movements intact, [id number] intact, Psych: Patient's affect is normal - Assessment and Plan (1) RUQ abdominal pain Current Visit: Yes Status: Acute Assessment and Plan: patient with cholelithiasis and now new onset of RUQ abdominal pain ALP has trended up bilirubin and LFTs have trended down surgery and GI on board - will follow recommendations on zosyn NPO continue IVF zofran PRN for nausea MRCP - 03/11- IMPRESSION: 1. No evidence of choledocholithiasis. No biliary ductal dilation. 2. Cholelithiasis. (2) Cholelithiasis Current Visit: No Status: Acute Assessment and Plan: CT scan performed on 03/09 at [facility] shows cholelithiasis without evidence of obstruction Does report history of biliary colic Breast the management as per above. (3) UTI (urinary tract infection) Current Visit: Yes Status: Acute Assessment and Plan: urine cultures growing gram negative rods on Zosyn will follow cx and descalate CT A/P performed on 03/09- There is no evidence for urinary tract stone or urinary tract obstruction to either kidney. Redemonstration of low-attenuation foci to both kidneys felt to reflect benign renal cysts and without necessity for continued follow-up. (4) CKD (chronic kidney disease) stage 3, GFR 30-59 ml/min Current Visit: No Status: Acute Assessment and Plan: creatinine at baseline will continue to monitor renal functions (5) Hyperlipidemia Current Visit: No Status: Acute Assessment and Plan: Will hold off statins as patient has transaminitis Was counseled on nutrition (6) Anemia Current Visit: No Status: Chronic Assessment and Plan: Has history of chronic anemia baseline hemoglobin around 10 We will continue to monitor H&H Transfuse below 7 (7) Hypertension Current Visit: No Status: Chronic Assessment and Plan: Continue lisinopril (8) Hypothyroidism Current Visit: No Status: Chronic Assessment and Plan: Continue Synthroid (9) Invasive ductal carcinoma of right breast Current Visit: No Status: Resolved Assessment and Plan: Status post lumpectomy as follows with Dr. Corea at [facility] Continue anastrozole (10) DVT prophylaxis Current Visit: Yes Status: Acute Assessment and Plan: heparin SC (11) Morbidly obese Current Visit: Yes Status: Acute Assessment and Plan: was counseled on nutrition - Time Spent with Patient Total time spent is greater than 50% in coordination of care (as documented) at patient's floor/unit and/or counseling patient: Internal Medicine: Result - Labs CBC & Chem 7: 03/12/18 05:31 03/12/18 05:31 Labs: Short CBC 03/12/18 Range/Units 05:31 WBC 4.9 (4.3-11.1) K/mcL Hgb 10.4 L (11.5-15.4) g/dL Hct 32.2 L (35.3-44.9) % Plt Count 180 (140-400) K/mcL Neutrophils # 3.1 (1.6-8.9) K/mcL BMP 03/12/18 05:31 Sodium 140 Potassium 3.5 Chloride 105 Carbon Dioxide 26 BUN 16 Creatinine 1.44 H Glucose 126 H Calcium 9.5 Liver Function 03/12/18 Range/Units 05:31 Total Bilirubin 1.4 H (0.3-1.0) mg/dL AST 123 H (13-39) Units/L ALT 314 H (7-52) Units/L Alkaline Phosphatase 173 H (34-104) Units/L Albumin 3.6 (3.5-5.7) g/dL - ABG Interpretation ABG results: PT/INR, D-dimer PT 11.7 Seconds (9.4-12.1) 03/12/18 05:31 - Impressions Impressions Abdomen MRI 03/11/18 21:52 IMPRESSION: 1. No evidence of choledocholithiasis. No biliary ductal dilation. 2. Cholelithiasis. D/ / Danish Faith MD / Danish Faith MD Interpreting Provider: Danish Faith MD Consult Discharge Plan - Plan Referrals: Aguila Rocha MD [Primary Care Provider] - (2) Cholelithiasis Qualifiers: Cholelithiasis location: gallbladder Cholecystitis acuity: acute and chronic (3) UTI (urinary tract infection) Qualifiers: Urinary tract infection type: acute cystitis Hematuria presence: without hematuria Qualified Code(s): N30.00 - Acute cystitis without hematuria (5) Hyperlipidemia Qualifiers: Hyperlipidemia type: mixed hyperlipidemia Qualified Code(s): E78.2 - Mixed hyperlipidemia (6) Anemia Qualifiers: Anemia type: unspecified type Qualified Code(s): D64.9 - Anemia, unspecified (7) Hypertension Qualifiers: Hypertension type: essential hypertension Qualified Code(s): I10 - Essential (primary) hypertension (8) Hypothyroidism Qualifiers: Hypothyroidism type: unspecified Qualified Code(s): E03.9 - Hypothyroidism, unspecified
[2018-03-12 11:50] LABS: Bilirubin,Direct 0.8 mg/dL (0.0-0.2); Bilirubin,Indirect 0.6 mg/dL (0.0-1.2)
[2018-03-12] MEDS: 0.9 % Sodium Chloride 1,000 ML IVC SCH ×2 (15:58→17:34)
[2018-03-13] MEDS: *HR* Heparin 5,000 UNIT/ML VIAL SQ SCH (05:07)
[2018-03-13 05:28] LABS: Albumin 3.4 g/dL (3.5-5.7); Albumin/Globulin Ratio 1.2 (1.1-2.2); Bilirubin,Direct 0.4 mg/dL (0.0-0.2); Bilirubin,Indirect 0.5 mg/dL (0.0-1.2); Bilirubin,Total 0.9 mg/dL (0.3-1.0); Globulin 2.8 g/dL (2.4-3.5); Total Protein 6.2 g/dL (6.4-8.9)
[2018-03-13 07:56] VITALS: BP 149/66
[2018-03-13] MEDS: Piperacillin/Tazobactam 3.375 GM in 0.9 % Sodium Chloride Mini Bag 100 ML IVPB SCH (08:49)
[2018-03-13] MEDS: Lisinopril 20 MG TABLET PO SCH (08:49)
[2018-03-13] MEDS: Cyanocobalamin (B-12) 1,000 MCG TABLET PO SCH (08:49)
[2018-03-13] MEDS: amLODIPine 5 MG TABLET PO SCH (08:49)
[2018-03-13] MEDS: Anastrozole 1 MG TABLET PO SCH (08:49)
[2018-03-13] MEDS: FLAXSEED OIL PO SCH (08:50)
[2018-03-13] MEDS: CALCIUM PO SCH (08:50)
[2018-03-13] MEDS: [UNRECOGNIZED DRUG - OTHER] PO SCH (08:50)
--- NOTE | 2018-03-13 11:00 | Discharge Summary ---
Date of Encounter: 03/13/18 Time of Encounter: 10:58 - Discharge Diagnosis (1) Cholelithiasis without cholecystitis Priority: Primary Status: Acute (2) Transaminitis Priority: Primary Status: Acute (3) Hypertensive renal disease with renal failure Priority: Secondary Status: Chronic (4) CKD (chronic kidney disease) stage 3, GFR 30-59 ml/min Priority: Secondary Status: Chronic (5) Invasive ductal carcinoma of right breast Priority: Secondary Status: Chronic (6) Anemia Priority: Secondary Status: Chronic Qualifiers: Anemia type: unspecified type Qualified Code(s): D64.9 - Anemia, unspecified (7) Hypothyroidism Priority: Secondary Status: Chronic Qualifiers: Hypothyroidism type: unspecified Qualified Code(s): E03.9 - Hypothyroidism , unspecified (8) Hyperlipidemia Priority: Secondary Status: Chronic Qualifiers: Hyperlipidemia type: mixed hyperlipidemia Qualified Code(s): E78.2 - Mixed hyperlipidemia (9) Morbid obesity with BMI of 40.0-44.9, adult Priority: Secondary Status: Chronic Hospital course: HOSPITAL COURSE: This 77-year-old woman was admitted to the hospital shortly after she developed right upper quadrant abdominal pain with some nausea/vomiting and diarrhea. Those symptoms subsided shortly after the admission. She had similar symptoms ( frequently without diarrhea) on multiple occasions in the last couple yearsusually happening after meals. CT of abdomen and pelvis was obtained. It showed cholelithiasis without features of cholecystitis. One can see elevated liver function tests with normal bilirubin. AST, ALT and alk phos were initially 123, 314 and 173. They are 56, 212 and 154 respectively today. WBC is normal. The patient was consulted by Dr. Hernandez, surgery. He feels that the patient should be discharged; he will see her in his office on March 17. Then, he will make decision about possible surgery. CONDITION AT DISCHARGE: The patient feels good. Denies abdominal pain, nausea and vomiting. He has normal bowel movements. Skin: Free of rash and discoloration. Respiratory: Normal breath sounds with no crackles and wheezes bilaterally. CV: Heart is regular with no gallop or murmur. GI: Abdomen is flat and soft with no palpable mass or visceromegaly. Neuro exam: There is no focal deficits. Normal speech, swallowing and gait. SEE DISCHARGE ORDERS/MEDICATIONS.. Discharge discussed with: patient - Time Spent with Patient Total time spent providing and/or coordinating discharge services: Greater than 30 minutes (40 minutes..) - Discharge Medications Prescriptions: amLODIPine [Norvasc] 5 mg PO DAILY #30 tablet Home Medications: Calcium Carbonate/Vitamin D3 [Calcium 250+D Tablet] 1 each PO BID 03/19/15 [ History] Levothyroxine [Synthroid] 50 mcg PO DAILY 03/19/15 [History] Anastrozole [Arimidex] 1 mg PO DAILY #90 tablet 01/21/17 [Rx] Cyanocobalamin (Vitamin B-12) [Vitamin B12] 1 tab PO DAILY #30 tablet 01/06/18 [ Rx] Flaxseed Oil [[place]-3 Flaxseed Oil] 1,000 mg PO DAILY 03/11/18 [History] Lisinopril [Zestril] 40 mg PO DAILY 03/11/18 [History] amLODIPine [Norvasc] 5 mg PO DAILY #30 tablet 03/13/18 [Rx] Allergies/Adverse Reactions: 3 Allergy/AdvReac Type Severity Reaction Status Date / Time allopurinol Allergy Rash Verified 03/09/18 13:07 clindamycin Allergy Rash Verified 03/09/18 13:07 Date of admission: 03/11/18 13:30 Primary care physician: Aguila Rocha MD Consults: 03/11/18 15:02 Consult to Gastroenterology [CONS] Stat Consulting Provider: Lakia Vasquez Reason for Consult: cholelithiasis adn now with elevated alp- transfered from [place] Call Completed: Yes Consult to Surgery [CONS] Stat Consulting Provider: Giovani Bejarano Reason for Consult: chlelithiasis RUQ abdominal pain, elevated ALP Call Completed: Yes Discharging clinician: Parviz Overton Anticipated date of discharge: 03/13/18 - Constitutional Vitals: Temp Pulse Resp BP Pulse Ox 97.7 F 56 16 149/66 93 03/13/18 07:55 03/13/18 07:55 03/13/18 07:55 03/13/18 07:55 03/13/18 08:48 General appearance: Present: A&O X 3, no acute distress, answers questions appropriately Exam: xx - Patient Status Disposition: Home, Self-Care Condition: Good Functional capacity at discharge: independent ambulation Overall status at discharge: patient is back to baseline - Discharge Instructions Instructions: Gallstones (DC), Low Fat Diet (DC) Follow Up With: Loc Hernandez MD [Partnered Physician] - 03/17/18 8:15 am Aguila Rocha MD [Primary Care Provider] - 03/17/18 11:30 am - Diet and Activity Activity: resume usual activities as tolerated Diet: low fat, low cholesterol - VTE Deep Vein Thrombosis/Pulmonary Embolism Present on Admission: No
--- NOTE | 2018-03-13 11:19 | General Surgery Progress Note ---
Date of Encounter: 03/13/18 Time of Encounter: 11:17 - Assessment and Plan (1) Cholelithiasis without cholecystitis Current Visit: Yes Status: Acute Afebrile with normal WBC. MRI shows cholethithiasis with no evidence of choledocholothiasis and no bilary ductal dilation. Given complete resolution of symptoms patient will follow up out patient in our office for this chronic episodic - LFTs continue to trend down - agree with IVF - continue supportive care and pain management - follow a low fat diet Okay to discharge from surgical perspective (2) Transaminitis Current Visit: Yes Status: Acute Improving - see above Subjective Patient reports: feels better, tolerating a regular diet, flatus, bowel movement, afebrile Objective Vital Signs - Last 8 Hours Temp Pulse Resp BP Pulse Ox 03/13/18 08:48 93 03/13/18 07:55 97.7 F 56 16 149/66 93 03/13/18 03:19 98.1 F 58 14 145/72 93 Intake and Output 03/12/18 03/13/18 03/13/18 23:59 07:59 15:59 Intake Total 100 / 100 100 / 100 Balance 100 / 100 100 / 100 Intake: IV Fluids 100 / 100 100 / 100 Zosyn 3.375 GM In 0.9 % Sodium 100 / 100 100 / 100 Chloride (Mini-Bag +) 100 ML @ 25 mls/hr IVPB Q8HR [facility] Rx#: [id number] Other: # Voids 1 1 Weight 110.8 kg Blood Glucose* 152 134 Patient Weight 03/13/18 23:59 Weight 110.8 kg - General physical appearance well developed, well nourished, no distress, obese - Eyes normal ocular movement - ENT normal pinna, normal nares, normal mucosa - Respiratory normal expansion, normal respiratory effort, clear to auscultation - Cardiovascular Cardiovascular exam: Present: RRR, no murmurs/rubs/gallops - Abdomen Abdomen: Present: bowel sounds present, soft, non tender Hernia: none - Integumentary no rash, no growths, no abnormal pigmentation - Neurologic CN 2-12 grossly intact, normal coordination, normal sensation - Musculoskeletal normal gait, normal posture - Psychiatric oriented to time, oriented to person, oriented to place, speech is normal, angela ry intact - Labs 03/12/18 05:31 03/12/18 05:31 Diabetes panel 03/12/18 03/13/18 Range/Units 05:31 04:33 Sodium 140 (136-145) mEq/L Potassium 3.5 (3.5-5.1) mEq/L Chloride 105 (98-107) mEq/L Carbon Dioxide 26 (23-29) mEq/L BUN 16 (8-23) mg/dL Creatinine 1.44 H (0.60-1.20) mg/dL Glucose 126 H (70-105) mg/dL Calcium 9.5 (8.6-10.3) mg/dL AST 123 H 56 H (13-39) Units/L ALT 314 H 212 H (7-52) Units/L Alkaline Phosphatase 173 H 154 H (34-104) Units/L Albumin 3.6 3.4 L (3.5-5.7) g/dL Calcium panel 03/12/18 03/13/18 Range/Units 05:31 04:33 Calcium 9.5 (8.6-10.3) mg/dL Phosphorus 3.5 (2.7-4.5) mg/dL Albumin 3.6 3.4 L (3.5-5.7) g/dL Pituitary panel 03/12/18 Range/Units 05:31 Sodium 140 (136-145) mEq/L Potassium 3.5 (3.5-5.1) mEq/L Chloride 105 (98-107) mEq/L Carbon Dioxide 26 (23-29) mEq/L BUN 16 (8-23) mg/dL Creatinine 1.44 H (0.60-1.20) mg/dL Glucose 126 H (70-105) mg/dL Calcium 9.5 (8.6-10.3) mg/dL Adrenal panel 03/12/18 03/13/18 Range/Units 05:31 04:33 Sodium 140 (136-145) mEq/L Potassium 3.5 (3.5-5.1) mEq/L Chloride 105 (98-107) mEq/L Carbon Dioxide 26 (23-29) mEq/L BUN 16 (8-23) mg/dL Creatinine 1.44 H (0.60-1.20) mg/dL Glucose 126 H (70-105) mg/dL Calcium 9.5 (8.6-10.3) mg/dL Total Bilirubin 1.4 H 0.9 (0.3-1.0) mg/dL AST 123 H 56 H (13-39) Units/L ALT 314 H 212 H (7-52) Units/L Alkaline Phosphatase 173 H 154 H (34-104) Units/L Albumin 3.6 3.4 L (3.5-5.7) g/dL - VTE Deep Vein Thrombosis/Pulmonary Embolism Present on Admission: No Consult Discharge Plan - Plan Instructions: Gallstones (DC), Low Fat Diet (DC) Referrals: Loc Hernandez MD [Partnered Physician] - 03/17/18 8:15 am Aguila Rocha MD [Primary Care Provider] - 03/17/18 11:30 am Prescriptions: amLODIPine [Norvasc] 5 mg PO DAILY #30 tablet
== END 2018-03-13 12:29 | disposition home or self-care (01) | DRG 445 ==
LOC: SUATTDRO 13:30 → 3BNU 13:30
PROVIDERS: ADMIT Internal Medicine; ATTEND Internal Medicine